=== PATIENT | male | born 1980 | race Caucasian/White ===

== ENCOUNTER 2017-02-03 15:16 | Emergency (ER) | payer MEDICARE, MEDICAID ==
[2017-02-03] MEDS ORDERED: Sodium Chloride 0.9% 10 ML Syringe FLUSH PRN (15:17)
[2017-02-03] MEDS ORDERED: Midazolam 1 MG/ML 5 ML SDV IVPUSH ONE (15:19)
[2017-02-03] MEDS ORDERED: Midazolam 1 MG/ML 5 ML SDV ONE (15:22)
[2017-02-03] MEDS ORDERED: Sodium Chloride 0.9% 1,000 ML IV SCH (15:45)
--- NOTE | 2017-02-03 16:19 | EDM.PDOC ---
ED HPI GENERAL MEDICAL PROBLEM - General Chief Complaint: Drug or Alcohol Abuse Stated Complaint: NORTH TO ER EVAL Time Seen by Provider: 02/03/17 15:30 Source of Information: Reports: Patient, EMS Notes Reviewed, Family History Limitations: Reports: No Limitations - History of Present Illness INITIAL COMMENTS - FREE TEXT/NARRATIVE: pt had been in an argument with his girl friend. he waas making sense but was very agitated when ems arrived. He was hyperventilating severely on arrival. He wa s given ketamine and it did not sedate him but instead made him very agitated. He was holdng his head when this started He kept saying he was having severe pain. Onset: Today Duration: Hour(s):, Getting Worse Location: Reports: Head Associated Symptoms: Reports: Confusion, Diaphoresis, Headaches - Related Data Allergies Allergy/AdvReac Type Severity Reaction Status Date / Time wellbutrin Allergy Change Uncoded 02/03/17 16:14 Mental Status Home Meds: Home Meds Albuterol [Proair HFA] 8.5 gm INH ASDIRECTED PRN 09/27/13 [History] Nystatin/Triamcinolone Crm [Mycolog Crm] 15 gm TOP ASDIRECTED PRN 09/27/13 [ History] Past Medical History Gastrointestinal History: Reports: Cholelithiasis Neurological History: Reports: Concussion Psychiatric History: Reports: ADHD, Anxiety, Bipolar, Psych Hospitalization(s), Suicidal Ideation - Past Surgical History GI Surgical History: Reports: Appendectomy, Cholecystectomy, Hernia, Abdominal Social & Family History - Tobacco Use Smoking Status *Q: Current Every Day Smoker Years of Tobacco use: 18 Packs/Tins Daily: 1.5 Used Tobacco, but Quit: No Second Hand Smoke Exposure: Yes - Caffeine Use Caffeine Use: Reports: Soda - Alcohol Use Days Per Week of Alcohol Use: 0 Number of Drinks Per Day: 7 Total Drinks Per Week: 0 - Recreational Drug Use Recreational Drug Use: No Recreational Drug Type: Reports: Marijuana/Hashish Recreational Drug Use Frequency: Monthly ED ROS GENERAL - Review of Systems Review Of Systems: See Below Constitutional: Reports: No Symptoms HEENT: Reports: No Symptoms Respiratory: Reports: No Symptoms Cardiovascular: Reports: No Symptoms Endocrine: Reports: No Symptoms GI/Abdominal: Reports: No Symptoms : Reports: No Symptoms Musculoskeletal: Reports: No Symptoms Skin: Reports: No Symptoms Neurological: Reports: Confusion, Other (pt was very agitated and was hyperventilating. ) Psychiatric: Reports: No Symptoms Hematologic/Lymphatic: Reports: No Symptoms Immunologic: Reports: No Symptoms - Physical Exam Exam: See Below Text/Narrative:: pt was very agitated and was hallucinating. He had been given a large amount of ketamine in the ambulance. He was found to have a normal head scan and normal labs. His drug screen was neg. Exam Limited By: Other (very agitated.) General Appearance: Alert, Anxious, Other ( confused and hallucinating. Pupils equal and reactive. ) Ears: Normal TMs Nose: Normal Inspection Throat/Mouth: Normal Inspection Head Exam: Atraumatic Neck: Normal Inspection Respiratory/Chest: No Respiratory Distress, Other (pt had been hyperventilating prior to being picked up by the ambulance. ) Cardiovascular: Regular Rate, Rhythm GI/Abdominal: Soft, Non-Tender (Male) Exam: Normal Inspection Rectal (Males) Exam: Deferred Neuro Exam (Abbreviated): Confused, Disoriented Back Exam: Normal Inspection Extremities: Normal Inspection Psychiatric: Normal Affect Course - Vital Signs Last Recorded V/S: Last Vital Signs Temp 37.9 C 02/03/17 15:55 Pulse 98 02/03/17 17:52 Resp 14 02/03/17 17:52 BP 109/40 L 02/03/17 17:52 Pulse Ox 98 02/03/17 17:52 - Orders/Labs/Meds Labs: Laboratory Tests 02/03/17 02/03/17 02/03/17 Range/Units 15:19 15:19 15:20 WBC 13.3 H (4.5-11.0) K/uL RBC 5.00 (4.30-5.90) M/uL Hgb 16.5 H (12.0-15.0) g/dL Hct 46.9 (40.0-54.0) % MCV 94 (80-98) fL MCH 33 H (27-31) pg MCHC 35 (32-36) % Plt Count 279 (150-400) K/uL Neut % (Auto) 62 (36-66) % Lymph % (Auto) 30 (24-44) % [place] % (Auto) 7 H (2-6) % Eos % (Auto) 1 L (2-4) % Baso % (Auto) 0 (0-1) % Sodium 140 (140-148) mmol/L Potassium 3.6 (3.6-5.2) mmol/L Chloride 103 (100-108) mmol/L Carbon Dioxide 21 (21-32) mmol/L Anion Gap 16.0 H (5.0-14.0) mmol/L BUN 9 D (7-18) mg/dL Creatinine 1.2 (0.8-1.3) mg/dL Est Cr Clr Drug Dosing TNP Estimated GFR (MDRD) > 60 (>60) Glucose 125 H (74-106) mg/dL Calcium 9.0 (8.5-10.1) mg/dL Total Bilirubin 0.6 (0.2-1.0) mg/dL AST 22 D (15-37) U/L ALT 30 D (12-78) U/L Alkaline Phosphatase 105 (46-116) U/L Total Protein 7.8 (6.4-8.2) g/dL Albumin 4.2 (3.4-5.0) g/dL Globulin 3.6 H (2.3-3.5) g/dL Albumin/Globulin Ratio 1.2 (1.2-2.2) Urine Color Urine Appearance Urine pH (4.5-8.0) Ur Specific [place] (1.008-1.030) Urine Protein (NEGATIVE) mg/dL Urine Glucose (UA) (NEGATIVE) mg/dL Urine Ketones (NEGATIVE) mg/dL Urine Occult Blood (NEGATIVE) Urine Nitrite (NEGAITVE) Urine Bilirubin (NEGATIVE) Urine Urobilinogen (NORMAL) mg/dL Ur Leukocyte Esterase (NEGATIVE) Urine RBC (0-5) Urine WBC (0-5) Ur Epithelial Cells Amorphous Sediment Urine Bacteria Urine Mucus Urine Opiates Screen (NEGATIVE) Ur Oxycodone Screen (NEGATIVE) Urine Methadone Screen (NEGATIVE) Ur Propoxyphene Screen (NEGATIVE) Acetaminophen 0.0 L (10.0-30.0) ug/mL Ur Barbiturates Screen (NEGATIVE) Ur Tricyclics Screen (NEGATIVE) Ur Phencyclidine Scrn (NEGATIVE) Ur Amphetamine Screen (NEGATIVE) U Methamphetamines Scrn (NEGATIVE) Urine MDMA Screen (NEGATIVE) U Benzodiazepines Scrn (NEGATIVE) U Cocaine Metab Screen (NEGATIVE) U Marijuana (THC) Screen (NEGATIVE) 02/03/17 02/03/17 Range/Units 15:55 15:55 WBC (4.5-11.0) K/uL RBC (4.30-5.90) M/uL Hgb (12.0-15.0) g/dL Hct (40.0-54.0) % MCV (80-98) fL MCH (27-31) pg MCHC (32-36) % Plt Count (150-400) K/uL Neut % (Auto) (36-66) % Lymph % (Auto) (24-44) % [place] % (Auto) (2-6) % Eos % (Auto) (2-4) % Baso % (Auto) (0-1) % Sodium (140-148) mmol/L Potassium (3.6-5.2) mmol/L Chloride (100-108) mmol/L Carbon Dioxide (21-32) mmol/L Anion Gap (5.0-14.0) mmol/L BUN (7-18) mg/dL Creatinine (0.8-1.3) mg/dL Est Cr Clr Drug Dosing Estimated GFR (MDRD) (>60) Glucose (74-106) mg/dL Calcium (8.5-10.1) mg/dL Total Bilirubin (0.2-1.0) mg/dL AST (15-37) U/L ALT (12-78) U/L Alkaline Phosphatase (46-116) U/L Total Protein (6.4-8.2) g/dL Albumin (3.4-5.0) g/dL Globulin (2.3-3.5) g/dL Albumin/Globulin Ratio (1.2-2.2) Urine Color Yellow Urine Appearance Clear Urine pH 6.0 (4.5-8.0) Ur Specific [place] 1.020 (1.008-1.030) Urine Protein Negative (NEGATIVE) mg/dL Urine Glucose (UA) Normal (NEGATIVE) mg/dL Urine Ketones Negative (NEGATIVE) mg/dL Urine Occult Blood Negative (NEGATIVE) Urine Nitrite Negative (NEGAITVE) Urine Bilirubin Negative (NEGATIVE) Urine Urobilinogen Normal (NORMAL) mg/dL Ur Leukocyte Esterase Negative (NEGATIVE) Urine RBC 0-5 (0-5) Urine WBC 0-5 (0-5) Ur Epithelial Cells Few Amorphous Sediment Not seen Urine Bacteria Few Urine Mucus Many Urine Opiates Screen Negative (NEGATIVE) Ur Oxycodone Screen Negative (NEGATIVE) Urine Methadone Screen Negative (NEGATIVE) Ur Propoxyphene Screen Negative (NEGATIVE) Acetaminophen (10.0-30.0) ug/mL Ur Barbiturates Screen Negative (NEGATIVE) Ur Tricyclics Screen Negative (NEGATIVE) Ur Phencyclidine Scrn Negative (NEGATIVE) Ur Amphetamine Screen Negative (NEGATIVE) U Methamphetamines Scrn Negative (NEGATIVE) Urine MDMA Screen Negative (NEGATIVE) U Benzodiazepines Scrn Negative (NEGATIVE) U Cocaine Metab Screen Negative (NEGATIVE) U Marijuana (THC) Screen Positive H (NEGATIVE) Meds: Medications Discontinued Medications Generic Name Dose Route Start Last Admin Trade Name Freq PRN Reason Stop Dose Admin Sodium Chloride 1,000 mls @ 999 mls/hr 02/03/17 15:45 02/03/17 17:36 Normal Saline IV Not Given ASDIRECTED RADHA Lorazepam 1 mg 02/03/17 16:27 02/03/17 17:36 Ativan IVPUSH 02/03/17 16:28 Not Given ONETIME ONE Midazolam HCl 5 mg 02/03/17 15:19 02/03/17 15:24 Versed 1 Mg/Ml IVPUSH 02/03/17 15:20 5 mg ONETIME ONE Administration Midazolam HCl Confirm 02/03/17 15:22 Versed 1 Mg/Ml Administered 02/03/17 15:23 Dose 5 mg .ROUTE .STK-MED ONE Sodium Chloride 10 ml 02/03/17 15:17 02/03/17 15:25 Saline Flush FLUSH 10 ml ASDIRECTED PRN Administration Keep Vein Open - Re-Assessments/Exams Free Text/Narrative Re-Assessment/Exam: 02/03/17 17:18 pt had a neg ct scan of the head. His lab work was normal. His drug screen was neg. a Departure - Departure Time of Disposition: 17:55 Disposition: Home, Self-Care 01 Condition: Fair Clinical Impression: Confusion, Agitation, Hyperventilation - Discharge Information Instructions: Hyperventilation Referrals: PCP,None [Primary Care Provider] - Forms: ED Department Discharge Care Plan Goals: low activity, resume normal meds.
[2017-02-03] MEDS ORDERED: LORazepam 2 MG/ML MDV IVPUSH ONE (16:27)
[2017-02-03 18:29] VITALS: BP 109/40
== END 2017-02-03 18:25 | disposition home or self-care (01) ==
LOC: JP.ED 15:16
DX: R06.4 Hyperventilation (principal); R41.0 Disorientation, unspecified; R45.1 Restlessness and agitation; F17.210 Nicotine dependence, cigarettes, uncomplicated; F41.9 Anxiety disorder, unspecified; F31.9 Bipolar disorder, unspecified; Z88.8 Allergy status to other drugs, medicaments and biological substances
CPT/HCPCS: 36415; 70450; 80053; 80305; 81001; 85025; 96374; 99284; G0480; J2250; J7050

== ENCOUNTER 2019-11-13 18:34 | Emergency (ER) | payer MEDICARE, MEDICAID ==
[2019-11-13 19:11] VITALS: BP 130/83; PULSE 93
--- NOTE | 2019-11-13 19:31 | EDM.PDOC ---
ED HPI GENERAL MEDICAL PROBLEM - General Chief Complaint: Diabetic Complaint Stated Complaint: high blood sugars Time Seen by Provider: 11/13/19 19:23 Source of Information: Reports: Patient, RN Notes Reviewed History Limitations: Reports: No Limitations - History of Present Illness INITIAL COMMENTS - FREE TEXT/NARRATIVE: 39-year-old gentleman presents emergency department a complaint of elevated blood sugars, he has been prediabetic for some time however recently had the surgery this spring fasting blood sugar was 200 plan to get worked into the clinic for evaluation of diabetes mellitus type 2 unfortunately due to the pandemic he has been unable to meet with his primary care provider. Checked his blood sugar today and was over 400. He does complain of some color changes in his feet and he is also complained of some changes in his vision. - Related Data Allergies Allergy/AdvReac Type Severity Reaction Status Date / Time wellbutrin Allergy Change Uncoded 11/13/19 19:07 Mental Status Home Meds: Home Meds Albuterol [Proair HFA] 8.5 gm INH ASDIRECTED PRN 09/27/13 [History] Dextroamphetamine/Amphetamine [Adderall 20 mg Tablet] 30 mg PO DAILY 11/13/19 [History] Escitalopram [Lexapro] 40 mg PO DAILY 11/13/19 [History] metFORMIN [Glucophage] 500 mg PO BIDMEALS #60 tab 11/13/19 [Rx] Past Medical History HEENT History: Reports: Impaired Vision Respiratory History: Reports: Asthma Gastrointestinal History: Reports: Cholelithiasis Musculoskeletal History: Reports: Back Pain, Chronic Neurological History: Reports: Concussion Psychiatric History: Reports: ADHD, Anxiety, Bipolar, Psych Hospitalization(s), Suicidal Ideation Endocrine/Metabolic History: Reports: Diabetes, Type II - Infectious Disease History Infectious Disease History: Reports: Chicken Pox - Past Surgical History GI Surgical History: Reports: Appendectomy, Cholecystectomy, Hernia, Abdominal Male Surgical History: Reports: Circumcision Social & Family History - Family History Family Medical History: Noncontributory - Tobacco Use Smoking Status *Q: Current Every Day Smoker Years of Tobacco use: 26 Packs/Tins Daily: 1 - Caffeine Use Caffeine Use: Reports: Coffee, Soda - Recreational Drug Use Recreational Drug Use: No ED ROS GENERAL - Review of Systems Review Of Systems: See Below Constitutional: Reports: No Symptoms HEENT: Reports: Vision Change Respiratory: Reports: No Symptoms Cardiovascular: Reports: No Symptoms GI/Abdominal: Reports: No Symptoms : Reports: No Symptoms Musculoskeletal: Reports: No Symptoms Skin: Reports: Rash ED EXAM GENERAL NO PERIP PULSE - Physical Exam Exam: See Below Exam Limited By: No Limitations General Appearance: Alert, WD/WN, No Apparent Distress Respiratory/Chest: No Respiratory Distress, Lungs Clear, Normal Breath Sounds, No Accessory Muscle Use, Chest Non-Tender Cardiovascular: Regular Rate, Rhythm, No Murmur Course - Vital Signs Last Recorded V/S: Last Vital Signs Temp 96.4 F L 11/13/19 19:10 Pulse 93 11/13/19 19:10 Resp 18 11/13/19 19:10 BP 130/83 11/13/19 19:10 Pulse Ox 96 11/13/19 19:10 - Orders/Labs/Meds Labs: Laboratory Tests 11/13/19 11/13/19 11/13/19 Range/Units 19:40 19:40 19:40 WBC 9.7 (4.5-11.0) K/uL RBC 4.78 (4.30-5.90) M/uL Hgb 15.1 H (12.0-15.0) g/dL Hct 43.9 (40.0-54.0) % MCV 92 (80-98) fL MCH 32 H (27-31) pg MCHC 34 (32-36) % Plt Count 234 (150-400) K/uL Neut % (Auto) 61 (36-66) % Lymph % (Auto) 33 (24-44) % [place] % (Auto) 6 (2-6) % Eos % (Auto) 1 L (2-4) % Baso % (Auto) 0 (0-1) % Sodium 132 L (140-148) mmol/L Potassium 4.2 (3.6-5.2) mmol/L Chloride 96 L (100-108) mmol/L Carbon Dioxide 26 (21-32) mmol/L Anion Gap 14.2 H (5.0-14.0) mmol/L BUN 7 (7-18) mg/dL Creatinine 1.1 (0.8-1.3) mg/dL Est Cr Clr Drug Dosing 96.98 mL/min Estimated GFR (MDRD) > 60 (>60) Glucose 435 H* (74-106) mg/dL Hemoglobin A1c 10.1 H (4.5-6.2) % Calcium 8.5 (8.5-10.1) mg/dL Total Bilirubin 0.4 (0.2-1.0) mg/dL AST 25 (15-37) U/L ALT 47 (12-78) U/L Alkaline Phosphatase 103 (46-116) U/L Total Protein 7.0 (6.4-8.2) g/dL Albumin 3.6 (3.4-5.0) g/dL Globulin 3.4 (2.3-3.5) g/dL Albumin/Globulin Ratio 1.1 L (1.2-2.2) Meds: Medications Discontinued Medications Generic Name Dose Route Start Last Admin Trade Name Freq PRN Reason Stop Dose Admin Metformin HCl 500 mg 11/13/19 20:19 Glucophage PO 11/13/19 20:20 ONETIME ONE Departure - Departure Time of Disposition: 20:22 Disposition: Home, Self-Care 01 Condition: Fair Clinical Impression: Diabetes mellitus Qualifiers: Diabetes mellitus type: type 2 Diabetes mellitus fci insulin use: without fci use Diabetes mellitus complication status: with other specified complication Qualified Code(s): E11.69 - Type 2 diabetes mellitus with other specified complication - Discharge Information Prescriptions: metFORMIN [Glucophage] 500 mg PO BIDMEALS #60 tab Instructions: Type 2 Diabetes Mellitus, Diagnosis, Adult Referrals: Richard Goodrich NP [Primary Care Provider] - Forms: ED Department Discharge Additional Instructions: He received a dose of metformin tonight, the remainder your metformin was faxed to [facility], start that medication tomorrow is twice a day this medication will increase over time please follow-up with your primary care in the next 3 to 5 days for reevaluation and management of your diabetes Sepsis Event Note (ED) - Evaluation Sepsis Screening Result: No Definite Risk - Focused Exam Vital Signs: Vital Signs Temp Pulse Resp BP Pulse Ox 11/13/19 19:10 96.4 F L 93 18 130/83 96 - Assessment/Plan Plan: Assessment Acuity = acute Site and laterality = new onset diabetes mellitus type 2 Etiology = unknown Manifestations = none Location of injury = Home Lab values = CBC CMP unremarkable other than glucose elevated 45 consistent hyperglycemia A1c is 10.1 average blood sugar about 250 Plan I did review lab work with him started him on metformin he is received 1 dose in the ED started low at 500 twice a day prescription was sent to [facility] he is going to follow-up with his primary care in the next couple days for further management of the diabetes This note was dictated using [employer] voice recognition software please call with any questions on syntax or grammar.
[2019-11-13 19:51] LABS: HEMOGLOBIN A1C 10.1 % (4.5-6.2)
[2019-11-13] MEDS ORDERED: metFORMIN 500 MG Tab PO ONE (20:19)
== END 2019-11-13 20:39 | disposition home or self-care (01) ==
LOC: JP.ED 18:34
DX: E11.65 Type 2 diabetes mellitus with hyperglycemia (principal); J45.909 Unspecified asthma, uncomplicated; F41.9 Anxiety disorder, unspecified; F90.9 Attention-deficit hyperactivity disorder, unspecified type; F17.210 Nicotine dependence, cigarettes, uncomplicated; Z88.8 Allergy status to other drugs, medicaments and biological substances; Z79.899 Other long term (current) drug therapy; Z79.84 Long term (current) use of oral hypoglycemic drugs
CPT/HCPCS: 36415; 80053; 83036; 85025; 99284; A9270

== ENCOUNTER 2020-04-23 07:24 | Day surgery (SDC) | payer MEDICARE, MEDICAID ==
[~2020-04-23 07:24] MED LIST: Midazolam 1 MG/ML 2 ML SDV ONE; Propofol 200 MG/20 ML SDV ONE; fentaNYL 100 MCG/2 ML SDV ONE
[2020-04-23] MEDS ORDERED: Bupivacaine 0.5% 50 ML MDV ONE (07:43)
[2020-04-23] MEDS ORDERED: ceFAZolin 2 GM in Premix Bag 1 BAG IV ONE (08:00)
[2020-04-23] MEDS ORDERED: Lactated Ringers 1,000 ML IV SCH (08:00)
[2020-04-23] MEDS ORDERED: Nozin Nasal Sanitizer NASBOTH ONE (08:00)
[2020-04-23] MEDS: Bupivacaine 0.5% 30 ML SDV ONE ×4 (08:50→11:20)
[2020-04-23] MEDS ORDERED: Midazolam 1 MG/ML 2 ML SDV ONE (09:22)
[2020-04-23] MEDS ORDERED: Lidocaine 1% 2 ML ONE (09:22)
[2020-04-23] MEDS ORDERED: Succinylcholine 200 MG/10 ML MDV ONE (09:59)
[2020-04-23] MEDS ORDERED: Rocuronium 50 MG/5 ML Vial ONE (09:59)
[2020-04-23] MEDS ORDERED: fentaNYL 100 MCG/2 ML SDV ONE (10:04)
[2020-04-23] MEDS ORDERED: Glycopyrrolate 0.2 MG/ML 5 ML MDV ONE (10:13)
[2020-04-23] MEDS ORDERED: Neostigmine Methylsulfate 1 MG/ML 5 ML Syringe ONE (10:13)
[2020-04-23] MEDS ORDERED: Ondansetron 4 MG/2 ML SDV ONE (10:13)
[2020-04-23] MEDS ORDERED: Dexamethasone 4 MG/ML SDV ONE (10:13)
[2020-04-23] MEDS ORDERED: Lactated Ringers 1,000 ML ONE (11:08)
[2020-04-23] MEDS ORDERED: Acetaminophen/oxyCODONE 325-5 MG Tab PO PRN (12:31)
[2020-04-23 13:32] VITALS: BP 99/62; PULSE 95
--- NOTE | 2020-05-05 18:45 | OR ---
DATE OF PROCEDURE: 04/23/2020 SURGEON: Dinh Cotton MD PREOPERATIVE DIAGNOSES: 1. 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 2. Impingement, left shoulder. POSTOPERATIVE DIAGNOSES: 1. Anterior labral tear. 2. Chondral defect, anterior glenoid, grade 4. 3. Impingement, left shoulder. PROCEDURES: 1. Arthroscopy of left shoulder with repair of anterosuperior glenoid labrum 2. Chondroplasty of glenoid. 3. Subacromial decompression with acromioplasty. ANESTHESIA: Interscalene block with sedation. INDICATIONS: Cain is a 40-year-old gentleman with a history of significant left shoulder pain. He has difficulty with reaching and lifting. Pain with abduction, external rotation. No history of dislocation. Examination and imaging are consistent with a chondral defect in the anterior glenoid and possible labral tear as well as impingement with [id number] tendinopathy. He now presents for diagnostic arthroscopy of the shoulder with repair of labrum and chondroplasty of glenoid as needed. Plan, subacromial decompression with acromioplasty, evaluation of rotator cuff. Risks, benefits, potential complications of the procedure were discussed. DESCRIPTION OF PROCEDURE: After adequate anesthesia was obtained, patient was placed in lateral decubitus position and secured with the beanbag positioner. Left shoulder and arm were prepped and draped in a sterile fashion and 10 pounds of traction was placed through the traction unit. A standard posterior portal was established. Glenohumeral joint was inspected. This revealed significant fraying and degeneration of the anterosuperior labrum. Glenoid showed a defect anteriorly measuring approximately 5 to 6 mm and roughly square in shape. Anterior portal was established. Shaver was introduced. Degenerative portions of the labrum were debrided revealing detachment of the labrum from the anterior glenoid. Glenoid defect was further evaluated and found to be grade 4 with a very thin layer of articular cartilage on the subchondral bone. Portions of the subchondral layer exposed. Subscapularis was intact. Biceps tendon was intact. The tear went up to, but did not go across the superior glenoid and biceps anchor was relatively intact. Undersurface of the rotator cuff showed no evidence of tear or significant tendinopathy. Cartilage from the edge of the glenoid was debrided with a shaver and a small round cynthia was used to lightly decorticate the rim from just beneath the biceps down to slightly below the equator of the glenoid. 2 Mitek Gryphon anchors were then placed. 1 limb of both sutures from each anchor was passed around the labrum using a penetrating suture grasper. The sutures were then tied down using standard arthroscopic technique placing the knot away from the edge of the glenoid. This resulted in stable repair. All loose fragments were removed and the scope was withdrawn. The scope was then placed in the subacromial space. Lateral portal was established. Bursa was resected for visualization. Moderate impingement against the coracoacromial ligament was noted. The rotator cuff was found to be intact. Coracoacromial ligament was taken off the undersurface of the acromion with ablation wand. Anterolateral edge was delineated and a cynthia was then utilized to perform an acromioplasty removing approximately 4 mm from the underside of the edge of the acromion. This was beveled medially and posteriorly. The arm was taken through internal and external rotation and abduction, and rotator cuff was inspected from both the posterior and lateral portals with no evidence of tear. The scope was withdrawn. Port sites were closed in a standard fashion. Steri-Strips were applied with a sterile dressing. The patient tolerated procedure well, there were no complications, taken from the operating room in stable condition. Dinh Cotton MD /[id number] ISABELLE
== END 2020-04-23 13:42 | disposition home or self-care (01) ==
LOC: JP.SDS 07:24
PROVIDERS: ATTEND Specialist
DX: S43.492A Other sprain of left shoulder joint, initial encounter (principal); M25.812 Other specified joint disorders, left shoulder; M94.8X1 Other specified disorders of cartilage, shoulder; F17.210 Nicotine dependence, cigarettes, uncomplicated; E66.01 Morbid (severe) obesity due to excess calories; E11.9 Type 2 diabetes mellitus without complications; Z01.812 Encounter for preprocedural laboratory examination; Z20.822 Contact with and (suspected) exposure to COVID-19; Z68.39 Body mass index [BMI] 39.0-39.9, adult; Z79.899 Other long term (current) drug therapy; Z88.8 Allergy status to other drugs, medicaments and biological substances
CPT/HCPCS: 29806; 29826; A9270; C1713; J0330; J0690; J1100; J2001; J2250; J2405; J2704; J2710; J3010; J3490; J7120

== ENCOUNTER 2021-11-18 07:00 | Day surgery (SDC) | payer MEDICARE, MEDICAID ==
[~2021-11-18 07:00] MED LIST changes: +Bupivacaine 0.5% 30 ML SDV ONE; -Midazolam 1 MG/ML 2 ML SDV ONE; -Propofol 200 MG/20 ML SDV ONE; -fentaNYL 100 MCG/2 ML SDV ONE
[2021-11-18] MEDS ORDERED: Propofol 200 MG/20 ML SDV ONE ×2 (07:08→07:36)
[2021-11-18] MEDS ORDERED: Midazolam 1 MG/ML 2 ML SDV ONE (07:08)
[2021-11-18] MEDS ORDERED: fentaNYL 100 MCG/2 ML SDV ONE (07:08)
[2021-11-18] MEDS ORDERED: Nozin Nasal Sanitizer NASBOTH ONE (07:30)
[2021-11-18] MEDS ORDERED: ceFAZolin 1 GM in Premix Bag 1 BAG IV ONE (07:30)
[2021-11-18] MEDS ORDERED: Lactated Ringers 1,000 ML IV SCH (07:30)
[2021-11-18] MEDS ORDERED: Succinylcholine 200 MG/10 ML MDV ONE (07:36)
[2021-11-18] MEDS ORDERED: Neostigmine Methylsulfate 1 MG/ML 5 ML Syringe ONE (07:36)
[2021-11-18] MEDS ORDERED: Ondansetron 4 MG/2 ML SDV ONE (07:36)
[2021-11-18] MEDS ORDERED: Dexamethasone 4 MG/ML SDV ONE (07:36)
[2021-11-18] MEDS ORDERED: Rocuronium 50 MG/5 ML Vial ONE (07:36)
[2021-11-18] MEDS ORDERED: Glycopyrrolate 0.2 MG/ML 5 ML MDV ONE (07:36)
[2021-11-18 07:52] LABS: ESTIMATED GFR 111 mL/min (>60)
[2021-11-18] MEDS ORDERED: fentaNYL 250 MCG/5 ML SDV ONE (09:48)
[2021-11-18] MEDS ORDERED: Acetaminophen/oxyCODONE 325-5 MG Tab PO PRN (12:36)
[2021-11-18 12:43] VITALS: BP 101/59; PULSE 77
== END 2021-11-18 12:48 | disposition home or self-care (01) ==
LOC: JP.SDS 07:00
PROVIDERS: ATTEND Specialist
DX: S43.431A Superior glenoid labrum lesion of right shoulder, initial encounter (principal); M25.311 Other instability, right shoulder; E11.9 Type 2 diabetes mellitus without complications; J45.909 Unspecified asthma, uncomplicated; F31.9 Bipolar disorder, unspecified; F17.200 Nicotine dependence, unspecified, uncomplicated; F90.9 Attention-deficit hyperactivity disorder, unspecified type; Z79.83 Long term (current) use of bisphosphonates; Z79.899 Other long term (current) drug therapy; Z79.810 Long term (current) use of selective estrogen receptor modulators (SERMs)
CPT/HCPCS: 29806; 36415; 80053; 85027; A9270; C1713; J0330; J0690; J1100; J2250; J2405; J2704; J2710; J3010; J3490; J7120

== ENCOUNTER 2023-10-23 18:18 | Emergency (ER) | payer MEDICARE, MEDICAID ==
[2023-10-23] MEDS ORDERED: Nitroglycerin 0.4 MG Tab.SL SL PRN (18:34)
[2023-10-23 18:41] LABS: BASOPHILS ABSOLUTE AUTO 0.05 K/uL (0.00-0.10); BASOPHILS PERCENT AUTO 0.6 % (0.1-1.3); EOSINOPHILS PERCENT AUTO 0.1 % (0.0-5.4); HEMATOCRIT 40.6 % (38.4-49.7); HEMOGLOBIN 14.9 g/dL (12.9-16.9); IMMATURE GRAN ABSOLUTE AUTO 0.03 K/uL (0.00-0.23); IMMATURE GRAN PERCENT AUTO 0.3 % (0.0-0.7); LYMPHOCYTES ABSOLUTE AUTO 2.58 K/uL (0.8-3.3); LYMPHOCYTES PERCENT AUTO 28.7 % (11.4-47.7); MEAN CORPUSCULAR HGB CONC 36.7 g/dL (31.6-35.5); MEAN CORPUSCULAR VOLUME 92.7 fL (81.4-99.0); MONOCYTES ABSOLUTE AUTO 0.61 K/uL (0.20-0.90); MONOCYTES PERCENT AUTO 6.8 % (3.3-12.6); NEUTROPHILS PERCENT AUTO 63.5 % (40.0-78.1); PLATELET COUNT,PLT 225 K/uL (130-375); RED BLOOD CELL COUNT 4.38 M/uL (4.14-5.76)
[2023-10-23 18:46] LABS: EOSINOPHILS ABSOLUTE AUTO 0.01 K/uL (0.00-0.40)
[2023-10-23 19:04] LABS: A/G RATIO 1.1 (1.2-2.2); ALANINE AMINOTRANSFERASE,ALT 40 U/L (12-78); ALBUMIN 3.9 g/dL (3.4-5.0); ALKALINE PHOSPHATASE 82 U/L (46-116); ANION GAP 13.6 mmol/L (5.0-14.0); ASPARTATE AMNIOTRANSFERASE,AST 25 U/L (15-37); BILIRUBIN TOTAL 0.4 mg/dL (0.2-1.0); BLOOD UREA NITROGEN,BUN 7 mg/dL (7-18); CALCIUM 8.8 mg/dL (8.5-10.1); CARBON DIOXIDE,CO2 24 mmol/L (21-32); CHLORIDE,CL 103 mmol/L (100-108); EST CRCL DRUG DOSING (CG) 99.36 mL/min; ESTIMATED GFR 96 mL/min (>60); GLUCOSE RANDOM 152 mg/dL (74-106); POTASSIUM,K 3.6 mmol/L (3.6-5.2); PROTEIN TOTAL,TP 7.3 g/dL (6.4-8.2); SODIUM,NA 141 mmol/L (140-148); TROPONIN I HIGH SENSITIVITY 4.3 pg/mL (<=60.3)
[2023-10-23] MEDS: Aspirin 81 MG Tab.Chew PO ONE (19:18)
[2023-10-23] MEDS: LORazepam 2 MG/ML SDV IVPUSH ONE (19:18)
[2023-10-23] MEDS: Sodium Chloride 0.9% 1,000 ML IV SCH (19:20)
[2023-10-23 21:14] VITALS: BP 97/63; PULSE 83
== END 2023-10-23 21:19 | disposition home or self-care (01) ==
LOC: JP.ED 18:18
DX: R07.89 Other chest pain (principal); E11.9 Type 2 diabetes mellitus without complications; J44.89 Other specified chronic obstructive pulmonary disease; Z88.8 Allergy status to other drugs, medicaments and biological substances; Z79.51 Long term (current) use of inhaled steroids; Z79.899 Other long term (current) drug therapy; Z79.84 Long term (current) use of oral hypoglycemic drugs; Z90.49 Acquired absence of other specified parts of digestive tract
CPT/HCPCS: 36415; 71045; 80053; 84484; 85025; 93005; 93010; 96374; 99284; 99285; A9270; J2060; J7030

== ENCOUNTER 2025-02-26 08:13 | Emergency (ER) | payer MEDICARE, MEDICAID ==
[2025-02-26 08:30] VITALS: BP 99/58; PULSE 99
== END 2025-02-26 09:12 | disposition home or self-care (01) ==
LOC: JP.ED 08:13
DX: M06.9 Rheumatoid arthritis, unspecified (principal); Z88.0 Allergy status to penicillin; Z79.899 Other long term (current) drug therapy
CPT/HCPCS: 99283